=== PATIENT | female | born 1950 | race Caucasian/White ===

== ENCOUNTER → 2017-09-06 | Day surgery (SDC) | payer OTHER, MEDICARE ==
[~2017-09-06] VITALS: Ht 172.7 cm; Wt 74.4 kg
--- NOTE | 2017-09-07 09:27 | Operative Report ---
See Addendum Operative/Inv Procedure Report Surgery Date: 09/07/17 Name of Procedure: Exploratory laparotomy with biopsy Pre-Operative Diagnosis: Abdominal tumor Post-Operative Diagnosis: Carcinomatosis Estimated Blood Loss: scant Surgeon/Mortgage Loan Reviewer: Susana SMITH,Benja STEVE Anesthesia: general endotracheal tube Operative/Procedure Note Note: Patient was positioned supine after successful induction of general anesthesia timeouts antibiotics tap block patient's abdomen was clipped prepped and draped in usual sterile fashion based on the examine the CT scan we aimed a limited vertical infraumbilical laparotomy incision measuring about 7 cm mid incision with a 10 blade deepened it with cautery through the subcutaneous fat down to the fascia which was incised also with cautery it was immediately evident that there was carcinomatosis there were a few studs right at the incision on the peritoneal surface and there was adhesed bowel right there as well we excised 3 of these subcentimeter very firm white rounded implants and send him to the pathology who did a frozen section on one of them and commented that it was fibrotic and calcified with a lymphoplasmacytic feature but no obvious carcinoma. However on exploration it appeared as carcinomatosis, there was a little bit of free fluid, not bright yellow, we could feel the main mass it was rockhard and bowel was adherent to it, we tried but really couldn't open our incision without tearing the bowel I came very close to puncturing the bowel with the cautery but I did not there was no need to put any sutures in after limited exploration, and since she has had no signs of bowel obstruction she tolerated the bowel prep easily no abdominal cramping or nausea just bladder pressure, we decided to close which was not easy as well because of that adherent bowel to the fascia, so I used smaller sutures smaller needles. I put 4 equally spaced 2-0 Prolene then ran a 2-0 Maxon. Followed by jesusita for skin and then an island dressing. EBL minimal lap and sponge counts correct wound expectancy clean IV fluids crystalloid complications none patient tolerated the procedure well was extubated and returned to recovery room in satisfactory condition. We await final pathology the tumor was remarkably firm. Note that on the CT scan the main tumor is in the pelvis just to the left of midline but there are other areas of irregular calcified tumor smaller one near the root of the transverse colon some at the peritoneal reflection and in the cecal fossa but on exploration you could feel many more little studs that aren't seen on the CT scan.
== END ==
LOC: STS 01:12
DX: R19.00 Intra-abdominal and pelvic swelling, mass and lump, unspecified site (principal); K66.0 Peritoneal adhesions (postprocedural) (postinfection); K66.8 Other specified disorders of peritoneum; R10.9 Unspecified abdominal pain; K21.9 Gastro-esophageal reflux disease without esophagitis; N39.0 Urinary tract infection, site not specified
CPT/HCPCS: 87086; 88305; 88331; C9290; J0131; J0696; J2250; J3490